=== PATIENT | male | born 1980 | race African-American/Black ===

== ENCOUNTER 2018-05-14 16:19 | Emergency (ER) | payer OTHER ==
[2018-05-14 16:51] VITALS: BP 102/57; PULSE 65; TEMP 99; BMI 25.0
--- NOTE | 2018-05-14 16:51 | PDOC ---
Rapid Medical Evaluation Time Seen by Provider: 05/14/18 16:49 Medical Evaluation: Allergies Allergy/AdvReac Type Severity Reaction Status Date / Time No Known Allergies Allergy Verified 05/14/18 16:48 05/14/18 16:49 I have performed a brief in-person evaluation of this patient. The patient presents with a chief complaint of: Sob w/ CP that started several hrs ago and persisted. CP worse w/ movement. No pmhx, illicit drug use, recent travel or sig fmhx Pertinent physical exam findings:stable w/ clear chest/lungs I have ordered the following:ekg/cxr The patient will proceed to the ED for further evaluation 05/14/18 16:54 Discharge Disposition - Diagnosis Chest pain Qualifiers: Chest pain type: unspecified Qualified Code(s): R07.9 - Chest pain, unspecified - Referrals - Patient Instructions - Post Discharge Activity
[2018-05-14] MEDS ORDERED: KETOROLAC TROMETHAMINE 60 MG/2 ML VIAL IM ONE (17:19)
[2018-05-14] MEDS ORDERED: KETOROLAC TROMETHAMINE 60 MG/2 ML VIAL ONE (17:25)
--- NOTE | 2018-05-14 17:28 | PDOC ---
History of Present Illness - General Chief Complaint: Pain Stated Complaint: TROUBLE BREATHING Time Seen by Provider: 05/14/18 16:49 History Source: Patient Exam Limitations: Clinical Condition - History of Present Illness Initial Comments: 05/14/18 17:23 Patient with no significant past medical history presenting with complaint of sudden onset of pain to her right flank area and lower ribs while driving 6 hours ago which has been persistent. Patient describes the pain as throbbing pain radiating down the abdominal area and shortness of breath. Patient reported pain is worse when he tries to the left side. Denies left-sided chest pain, palpitations, dizziness, sweats or lightheadedness. Denies nausea, vomiting or diarrhea. Denies any cardiac history. Denies any other symptoms Timing/Duration: 4-6 hours Past History - Past Medical History Allergies/Adverse Reactions: Allergies Allergy/AdvReac Type Severity Reaction Status Date / Time No Known Allergies Allergy Verified 05/14/18 16:48 Home Medications: Ambulatory Orders Ibuprofen 800 mg PO TID PRN #20 tablet 05/14/18 Methocarbamol [Robaxin -] 500 mg PO BID PRN #14 tablet 05/14/18 Tamsulosin HCl [Flomax] 0.4 mg PO DAILY #5 cap.er.24h 05/14/18 COPD: No - Immunization History Immunization Up to Date: Yes - Suicide/Smoking/Psychosocial Hx Smoking History: Never smoked Hx Alcohol Use: No Drug/Substance Use Hx: No Review of Systems - Review of Systems Able to Perform ROS?: Yes Is the patient limited Faroese proficient: No Constitutional: No: Chills, Diaphoresis, Fever, Loss of Appetite, Malaise, Night Sweats, Weakness, Weight Stable, Unintentional Wgt. Loss, Unexplained wgt Loss, Other HEENTM: No: Eye Pain, Blurred Vision, Tearing, Recent change in vision, Double Vision, Cataracts, Ear Pain, Ocular Prothesis, Ear Discharge, Nose Pain, Nose Congestion, Tinnitus, Nose Bleeding, Hearing Loss, Throat Pain, Throat Swelling , Mouth Pain, Dental Problems, Difficulty Swallowing, Mouth Swelling, Other Respiratory: Yes: See HPI, Shortness of Breath. No: Cough, Orthopnea, SOB with Exertion, SOB at Rest, Stridor, Wheezing, Productive cough, Hemoptysis, Other Cardiac (ROS): No: Chest Pain, Irregular Heart Rate, Lightheadedness, Palpitations, Syncope, Chest Tightness ABD/GI: No: Abdominal Distended, Abd. Pain w/ defecation, Blood Streaked Bowels , Constipated, Diarrhea, Difficulty Swallowing, Nausea, Poor Appetite, Poor Fluid Intake, Rectal Bleeding, Vomiting, Indigestion, Abdominal cramping, Tarry Stools, Other : Yes: Flank Pain (right side). No: Burning, Dysuria, Discharge, Urgency, Testicular Swelling, Testicular Pain Musculoskeletal: Yes: Muscle Pain (right lower ribs and flank pain) All Other Systems: Reviewed and Negative *Physical Exam - Vital Signs Last Vital Signs Temp Pulse Resp BP Pulse Ox 99.0 F 65 18 102/57 100 05/14/18 16:48 05/14/18 16:48 05/14/18 16:48 05/14/18 16:48 05/14/18 16:48 - Physical Exam Comments: 05/14/18 17:27 GENERAL: Well developed, well nourished. Awake and alert. No acute distress. HEENT: Normocephalic, atraumatic. PERRLA, EOMI. No conjunctival pallor. Sclera are non- icteric. Moist mucous membranes. Oropharynx is clear. NECK: Supple. Full ROM. No JVD. Carotid pulses 2+ and symmetric, without bruits. No thyromegaly. No lymphadenopathy. CARDIOVASCULAR: Regular rate and rhythm. No murmurs, rubs, or gallops. Distal pulses are 2+ and symmetric. PULMONARY: No evidence of respiratory distress. Lungs clear to auscultation bilaterally. No wheezing, rales or rhonchi. ABDOMINAL: Soft. Non-tender. Non-distended. No rebound or guarding. No organomegaly. Normoactive bowel sounds. MUSCULOSKELETAL : Tenderness to palpation over the right flank area right lower ribs. Pain worse with rotation of the hip to the left. No CVA tenderness. EXTREMITIES: No cyanosis. No clubbing. No edema. No calf tenderness. SKIN: Warm and dry. Normal capillary refill. No rashes. No jaundice. NEUROLOGICAL: Alert, awake, appropriate. Cranial nerves 2-12 intact. No deficits to light touch and temperature in face, upper extremities and lower extremities. No motor deficits in the in face, upper extremities and lower extremities. Normoreflexic in the upper and lower extremities. Normal speech. Toes are down- going bilaterally. Gait is normal without ataxia. PSYCHIATRIC: Cooperative. Good eye contact. Appropriate mood and affect. General Appearance: Yes: Nourished, Appropriately Dressed. No: Mild Distress ED Treatment Course - RADIOLOGY Radiology Studies Ordered: Category Date Time Status KUB (KID UR & BLAD) [RAD] Stat Radiology 05/14/18 17:21 Ordered Medical Decision Making - Medical Decision Making 05/14/18 17:28 Patient withpast medical history presenting with complain of 9 out of 10 throbbing right flank pain with shortness of breath for 6 hours. EKG done shows no acute MN OR cardiac pathology. Chest x-ray with no acute findings. UA urine culture ordered and Toradol 60 mg IM for pain. KUB x-ray ordered to rule out kidney stone. Treat based on imaging results 05/14/18 18:11 no acute findings on KUB. neg for nephrolithiasis. UA with no abnormal findings. pt will be discharge home with NSAIDS, muscle relaxer and urology follow-up as needed *DC/Admit/Observation/Transfer Diagnosis at time of Disposition: Acute right flank pain Chest pain Qualifiers: Chest pain type: unspecified Qualified Code(s): R07.9 - Chest pain, unspecified - Discharge Dispostion Disposition: HOME Condition at time of disposition: Stable Decision to Admit order: No - Prescriptions Prescriptions: Ibuprofen 800 mg PO TID PRN #20 tablet PRN Reason: pain Methocarbamol [Robaxin -] 500 mg PO BID PRN #14 tablet PRN Reason: pain Tamsulosin HCl [Flomax] 0.4 mg PO DAILY #5 cap.er.24h - Referrals Referrals: Ira Pablo MD [Staff Physician] - - Patient Instructions Additional Instructions: take medication as prescribed for pain. f/u with urology if symptoms persist for more than 4 days - Post Discharge Activity Forms/Work/School Notes: Back to Work
[2018-05-14 17:42] LABS: URINE APPEARANCE CLEAR; URINE BILIRUBIN NEGATIVE (<2.0 mg/dL); URINE COLOR STRAW; URINE GLUCOSE (UA) NEGATIVE (NEGATIVE); URINE KETONE NEGATIVE (NEGATIVE); URINE LEUK ESTERASE NEGATIVE (NEGATIVE); URINE NITRITE NEGATIVE (NEGATIVE); URINE PROTEIN NEGATIVE (NEGATIVE); URINE UROBILINOGEN NEGATIVE mg/dL (0.2-1.0)
--- NOTE | 2018-05-17 10:46 | EKG ---
Test Reason : Blood Pressure : / mmHG Vent. Rate : 062 BPM Atrial Rate : 062 BPM P-R Int : 210 ms QRS Dur : 090 ms QT Int : 376 ms P-R-T Axes : 043 066 039 degrees QTc Int : 381 ms SINUS RHYTHM WITH 1ST DEGREE A-V BLOCK CANNOT RULE OUT SEPTAL INFARCT , AGE UNDETERMINED ABNORMAL ECG NO PREVIOUS ECGS AVAILABLE Confirmed by SEEMA BECERRIL MD ([id number]) on 05/17/2018 10:45:44 AM Referred By: Confirmed By:SEEMA BECERRIL MD
== END 2018-05-14 18:27 | disposition home or self-care (01) ==
LOC: JERFT 16:19
PROC: 3E0233Z Introduction of Anti-inflammatory into Muscle, Percutaneous Approach (ICD-10-PCS; principal; 2018-05-14)
DX: R07.9 Chest pain, unspecified (principal); R10.11 Right upper quadrant pain
CPT/HCPCS: 71046-TC-FY; 74018-TC-FY; 81003; 87086; 93005; 93010; 99281-25